=== PATIENT | male | born 1975 | race Caucasian/White ===

== ENCOUNTER 2017-10-02 04:21 | Emergency (ER) | payer MEDICARE, MEDICAID ==
[~2017-10-02] VITALS: Ht 177.8 cm; Wt 68.0 kg
[~2017-10-02 04:21] MED LIST: ACET-2178; ASPI-785; BACL-141; BISA1KIT; DOCU50CA3; GEMF600T; GLYB1.252; KEPPSOL; METO25TA3; MULT-1131; TRAM50TA94
[2017-10-02] MEDS ORDERED: SODIUM CHLORIDE 0.9% 1,000 ML IV ONE (06:39)
[2017-10-02 08:13] LABS: CHLORIDE 97 mEq/L (98-107)
[2017-10-02 08:15] LABS: BASOPHILS % 1.5 % (0.0-2.0); EOSINOPHILS % 8.9 % (0.0-5.0); HEMATOCRIT. 30.6 % (42.0-52.0); LYMPHOCYTES % 25.2 % (20.0-50.0); MEAN CORPUSCULAR HEMOGLOBIN 27.3 pg (28.0-32.0); MEAN CORPUSCULAR VOLUME 84.2 fL (80.0-94.0); MEAN PLATELET VOLUME 9.3 fl (7.4-10.4); MONOCYTES % 5.6 % (2.0-8.0); NEUTROPHILS % 58.8 % (40.0-76.0); PLATELET 227 x1000/uL (130-400); RED BLOOD CELL COUNT 3.64 mill/uL (4.7-6.1); RED CELL DISTRIBUTION WIDTH 18.1 % (11.6-14.6)
[2017-10-02 08:23] LABS: CARBON DIOXIDE 29 mEq/L (21-32)
[2017-10-02 09:14] LABS: INR 1.1; PROTHROMBIN TIME 11.6 sec (9.4-11.6)
[2017-10-02 11:27] VITALS: BP 119/66
== END 2017-10-02 11:52 | disposition home or self-care (01) ==
LOC: ER 04:21 → CANBEDREQ 21:10
DX: J95.01 Hemorrhage from tracheostomy stoma (principal); E11.65 Type 2 diabetes mellitus with hyperglycemia; D64.9 Anemia, unspecified; K21.9 Gastro-esophageal reflux disease without esophagitis; I48.91 Unspecified atrial fibrillation; I10 Essential (primary) hypertension; E78.00 Pure hypercholesterolemia, unspecified; Z79.82 Long term (current) use of aspirin; Z99.11 Dependence on respirator [ventilator] status
CPT/HCPCS: 36415; 71045; 80053; 83605; 83880; 85025; 85610; 87040; 93005; 94002; 96360; 96361; 99285

== ENCOUNTER 2017-11-22 18:04 | Inpatient (IN) | payer MEDICARE, MEDICAID ==
[~2017-11-22] VITALS: Ht 152.4 cm; Wt 65.5 kg
[~2017-11-22 18:04] MED LIST changes: -BACL-141; +BACL-141 GT; -DOCU50CA3; +DOCU50CA3 GT; -GEMF600T; +GEMF600T GT; -GLYB1.252; +GLYB1.252 GT; -KEPPSOL; +KEPPSOL GT; -METO25TA3; +METO25TA3 GT
[2017-11-22 19:29] LABS: BASOPHILS % 0.8 % (0.0-2.0); EOSINOPHILS % 1.7 % (0.0-5.0); HEMATOCRIT. 27.4 % (42.0-52.0); HEMOGLOBIN. 8.8 g/dL (14.0-18.0); LYMPHOCYTES % 24.6 % (20.0-50.0); MEAN CORPUSCULAR HEMOGLOBIN 27.5 pg (28.0-32.0); MEAN CORPUSCULAR VOLUME 85.8 fL (80.0-94.0); MEAN PLATELET VOLUME 9.2 fl (7.4-10.4); MONOCYTES % 7.6 % (2.0-8.0); NEUTROPHILS % 65.3 % (40.0-76.0); PLATELET 227 x1000/uL (130-400); RED CELL DISTRIBUTION WIDTH 17.8 % (11.6-14.6)
[2017-11-22 19:32] LABS: CHLORIDE 102 mEq/L (98-107)
[2017-11-22 19:41] LABS: INR 1.1; PROTHROMBIN TIME 11.8 sec (9.4-11.6)
[2017-11-22] MEDS ORDERED: INSULIN REGULAR (HUMULIN R) 300UNITS/3ML IV ONE (20:00)
[2017-11-22] MEDS ORDERED: SODIUM CHLORIDE 0.9% 1,000 ML IV ONE (20:00)
[2017-11-22] MEDS ORDERED: ACETAMINOPHEN 650MG SUPP PR PRN (21:30)
[2017-11-22] MEDS ORDERED: GUAIFENESIN 200MG/10ML SUGAR FREE UDC PO PRN (21:30)
[2017-11-22] MEDS ORDERED: DEXTROSE 50% WATER 50ML SYRINGE IV PRN (21:30)
[2017-11-22] MEDS ORDERED: ONDANSETRON HCL 4MG/2ML VIAL IV PRN (21:30)
[2017-11-22] MEDS ORDERED: NA PHOS,M-B/NA PHOS,DI-BA ENEMA 118ML PR PRN (21:30)
[2017-11-22] MEDS ORDERED: CLONIDINE 0.1MG TABLET PO PRN (21:30)
[2017-11-22] MEDS ORDERED: MAGNESIUM/ALUMINUM HYDROXIDE/SIMETHICONE 30ML UDC PO PRN (21:30)
[2017-11-22] MEDS ORDERED: DIPHENHYDRAMINE 50MG/ML VIAL IV PRN (21:30)
[2017-11-22] MEDS ORDERED: ACETAMINOPHEN 325MG TABLET PO PRN (21:30)
[2017-11-22] MEDS ORDERED: ACETAMINOPHEN 650MG/20.3ML UDC GT PRN (21:30)
[2017-11-22] MEDS ORDERED: DOCUSATE SODIUM 100MG CAPSULE PO PRN (21:30)
[2017-11-23] VITALS (15 sets, daily range): BP systolic 100–155; BP diastolic 46–77
[2017-11-23] MEDS ORDERED: FOLI-43 GT (01:37)
[2017-11-23] MEDS ORDERED: ZINC220C6 GT (01:37)
[2017-11-23] MEDS ORDERED: METF500T4 GT (01:37)
[2017-11-23] MEDS ORDERED: VIT500LI GT (01:37)
[2017-11-23] MEDS ORDERED: DIGO250T81 GT (01:37)
[2017-11-23] MEDS: SODIUM CHLORIDE 0.9% INJ 3ML FLUSH IVF SCH ×3 (06:00→20:33)
[2017-11-23] MEDS: BLOOD SUGAR DIAGNOSTIC STRIP TEST SCH ×4 (06:22→20:33)
[2017-11-23] MEDS: INSULIN LISPRO 100 UNITS/ML SUBCUT SCH ×4 (06:22→20:33)
[2017-11-23] MEDS: IPRATROPIUM/ALBUTEROL 0.5-3(2.5)MG/3ML NEB INH PRN (08:29)
[2017-11-23 09:32] LABS: BASOPHILS % 0.8 % (0.0-2.0); HEMOGLOBIN. 8.5 g/dL (14.0-18.0); LYMPHOCYTES % 35.6 % (20.0-50.0); MEAN CORPUSCULAR HEMOGLOBIN 27.3 pg (28.0-32.0); MEAN CORPUSCULAR VOLUME 86.4 fL (80.0-94.0); MEAN PLATELET VOLUME 9.8 fl (7.4-10.4); MONOCYTES % 8.4 % (2.0-8.0); NEUTROPHILS % 51.2 % (40.0-76.0); PLATELET 139 x1000/uL (130-400); RED BLOOD CELL COUNT 3.13 mill/uL (4.7-6.1); RED CELL DISTRIBUTION WIDTH 17.3 % (11.6-14.6)
[2017-11-23 09:54] LABS: CHLORIDE 109 mEq/L (98-107)
[2017-11-23 10:08] LABS: HDL CHOLESTEROL 23 mg/dL (40-59); LDL CHOLESTEROL 42 mg/dL (5-100)
[2017-11-23] MEDS: PANTOPRAZOLE SODIUM 40 MG/VIAL IV SCH (17:45)
[2017-11-23 21:46] LABS: HEMATOCRIT 22.3 % (42.0-52.0); HEMOGLOBIN 7.2 g/dL (14.0-18.0)
[2017-11-24] VITALS (21 sets, daily range): BP systolic 101–153; BP diastolic 57–83
[2017-11-24] MEDS: BLOOD SUGAR DIAGNOSTIC STRIP TEST SCH ×4 (06:33→20:37)
[2017-11-24] MEDS: INSULIN LISPRO 100 UNITS/ML SUBCUT SCH ×4 (06:36→20:37)
[2017-11-24] MEDS: SODIUM CHLORIDE 0.9% INJ 3ML FLUSH IVF SCH ×3 (06:37→20:38)
[2017-11-24 06:56] LABS: HEMATOCRIT 21.2 % (42.0-52.0)
[2017-11-24 07:08] LABS: INR 1.1; PARTIAL THROMBOPLASTIN TIME 21.9 sec (23.4-31.0); PROTHROMBIN TIME 11.9 sec (9.4-11.6)
[2017-11-24 07:49] LABS: HEMOGLOBIN 6.7 g/dL (14.0-18.0)
[2017-11-24] MEDS: PANTOPRAZOLE SODIUM 40 MG/VIAL IV SCH (09:01)
[2017-11-24 16:58] LABS: HEMATOCRIT 28.7 % (42.0-52.0); HEMOGLOBIN 9.4 g/dL (14.0-18.0)
[2017-11-24] MEDS: SODIUM CHLORIDE 0.45% 1,000 ML IV SCH (17:38)
[2017-11-25] VITALS (12 sets, daily range): BP systolic 105–143; BP diastolic 60–74
[2017-11-25 01:47] LABS: HEMATOCRIT 29.6 % (42.0-52.0); HEMOGLOBIN 9.3 g/dL (14.0-18.0)
[2017-11-25] MEDS: SODIUM CHLORIDE 0.45% 1,000 ML IV SCH ×2 (05:07→18:29)
[2017-11-25] MEDS: BLOOD SUGAR DIAGNOSTIC STRIP TEST SCH ×4 (05:14→21:00)
[2017-11-25] MEDS: INSULIN LISPRO 100 UNITS/ML SUBCUT SCH ×4 (05:17→21:39)
[2017-11-25] MEDS: PANTOPRAZOLE SODIUM 40 MG/VIAL IV SCH (08:41)
[2017-11-25] MEDS ORDERED: SIMETHICONE 40 MG/0.6 ML 30ML ONE ×2 (08:41→15:58)
[2017-11-25] MEDS ORDERED: SODIUM CHLORIDE 0.9% 10ML VIAL ONE (08:41)
[2017-11-25 09:51] LABS: BASOPHILS % 0.9 % (0.0-2.0); HEMATOCRIT. 28.5 % (42.0-52.0); HEMOGLOBIN. 8.9 g/dL (14.0-18.0); LYMPHOCYTES % 33.7 % (20.0-50.0); MEAN CORPUSCULAR HEMOGLOBIN 26.8 pg (28.0-32.0); MEAN CORPUSCULAR VOLUME 85.9 fL (80.0-94.0); MEAN PLATELET VOLUME 9.2 fl (7.4-10.4); MONOCYTES % 7.4 % (2.0-8.0); PLATELET 166 x1000/uL (130-400); RED BLOOD CELL COUNT 3.32 mill/uL (4.7-6.1); RED CELL DISTRIBUTION WIDTH 17.6 % (11.6-14.6)
[2017-11-25 09:55] LABS: CHLORIDE 112 mEq/L (98-107)
[2017-11-25] MEDS ORDERED: LEVETIRACETAM 500MG/5ML CUP GT SCH (10:15)
[2017-11-25] MEDS ORDERED: PROT40 PO (10:21)
[2017-11-25] MEDS: FOLIC ACID 1MG TABLET GT SCH (10:55)
[2017-11-25] MEDS: GEMFIBROZIL 600MG TABLET GT SCH ×2 (10:55→21:40)
[2017-11-25] MEDS: ZINC SULFATE 220 MG ( 50 ) CAPSULE GT SCH (10:56)
[2017-11-25] MEDS: SODIUM CHLORIDE 0.9% INJ 3ML FLUSH IVF SCH ×2 (13:24→21:41)
[2017-11-25] MEDS: LEVETIRACETAM 500 MG in SODIUM CHLORIDE 0.9% 100 ML IV SCH ×2 (13:34→21:39)
[2017-11-25] MEDS: BACLOFEN 10MG TABLET GT SCH ×2 (13:39→21:40)
[2017-11-25] MEDS ORDERED: FENTANYL CITRATE/PF 50MCG/ML 2ML VIAL ONE (15:58)
[2017-11-25] MEDS ORDERED: MIDAZOLAM HCL 5 MG/5 ML VIAL ONE (15:58)
[2017-11-25] MEDS ORDERED: MIDAZOLAM HCL 5 MG/5 ML VIAL IV PRN (16:30)
[2017-11-25] MEDS ORDERED: FENTANYL CITRATE/PF 50MCG/ML 2ML VIAL IV PRN (16:31)
[2017-11-25] MEDS ORDERED: DIGOXIN 250MCG TABLET GT SCH (18:00)
[2017-11-26] VITALS (14 sets, daily range): BP systolic 90–142; BP diastolic 49–79
[2017-11-26] MEDS: SODIUM CHLORIDE 0.9% INJ 3ML FLUSH IVF SCH ×2 (06:00→14:02)
[2017-11-26] MEDS: INSULIN LISPRO 100 UNITS/ML SUBCUT SCH ×2 (06:27→12:39)
[2017-11-26] MEDS: BACLOFEN 10MG TABLET GT SCH ×2 (06:28→14:05)
[2017-11-26] MEDS: BLOOD SUGAR DIAGNOSTIC STRIP TEST SCH ×2 (06:28→12:31)
[2017-11-26] MEDS: IPRATROPIUM/ALBUTEROL 0.5-3(2.5)MG/3ML NEB INH PRN ×2 (08:04→12:18)
[2017-11-26] MEDS: ZINC SULFATE 220 MG ( 50 ) CAPSULE GT SCH (09:26)
[2017-11-26] MEDS: FOLIC ACID 1MG TABLET GT SCH (09:26)
[2017-11-26] MEDS: LEVETIRACETAM 500 MG in SODIUM CHLORIDE 0.9% 100 ML IV SCH (09:26)
[2017-11-26] MEDS: PANTOPRAZOLE SODIUM 40 MG/VIAL IV SCH (09:26)
[2017-11-26] MEDS: SODIUM CHLORIDE 0.45% 1,000 ML IV SCH (09:27)
[2017-11-26] MEDS: GEMFIBROZIL 600MG TABLET GT SCH (09:30)
[2017-11-26 13:44] LABS: LYMPHOCYTES % 28.9 % (20.0-50.0); MEAN CORPUSCULAR HEMOGLOBIN 28.5 pg (28.0-32.0); MEAN CORPUSCULAR VOLUME 85.3 fL (80.0-94.0); MONOCYTES % 4.8 % (2.0-8.0); NEUTROPHILS % 57.3 % (40.0-76.0); PLATELET 99 x1000/uL (130-400); RED BLOOD CELL COUNT 3.16 mill/uL (4.7-6.1); RED CELL DISTRIBUTION WIDTH 16.8 % (11.6-14.6)
[2017-11-26 13:51] LABS: CHLORIDE 115 mEq/L (98-107)
== END 2017-11-26 16:40 | DRG 377 ==
LOC: ER 18:51 → 5EST 20:19 → ENRESERV 21:13
PROVIDERS: ADMIT Family Medicine; ATTEND Family Medicine
PROC: 5A1945Z Respiratory Ventilation, 24-96 Consecutive Hours (ICD-10-PCS; 2017-11-22)
PROC: 30233N1 Transfusion of Nonautologous Red Blood Cells into Peripheral Vein, Percutaneous Approach (ICD-10-PCS; principal; 2017-11-24)
PROC: 0DJ08ZZ Inspection of Upper Intestinal Tract, Via Natural or Artificial Opening Endoscopic (ICD-10-PCS; 2017-11-25)
DX: K92.1 Melena (principal); G93.49 Other encephalopathy; Z99.11 Dependence on respirator [ventilator] status; J96.10 Chronic respiratory failure, unspecified whether with hypoxia or hypercapnia; Z93.0 Tracheostomy status; D68.9 Coagulation defect, unspecified; G40.909 Epilepsy, unspecified, not intractable, without status epilepticus; I48.91 Unspecified atrial fibrillation; E11.65 Type 2 diabetes mellitus with hyperglycemia; R13.10 Dysphagia, unspecified; I50.9 Heart failure, unspecified; D64.9 Anemia, unspecified; E78.00 Pure hypercholesterolemia, unspecified; E78.5 Hyperlipidemia, unspecified; I11.0 Hypertensive heart disease with heart failure; J44.9 Chronic obstructive pulmonary disease, unspecified; K21.9 Gastro-esophageal reflux disease without esophagitis; K29.60 Other gastritis without bleeding; Z87.820 Personal history of traumatic brain injury; Z79.899 Other long term (current) drug therapy; Z93.1 Gastrostomy status; Z74.01 Bed confinement status; Z79.82 Long term (current) use of aspirin
CPT/HCPCS: 36415; 71045; 80048; 80053; 80061; 82270; 82962; 85014; 85018; 85025; 85610; 85730; 86850; 86900; 86920; 93005; 94002; 94003; 94640; 96361; 96374; 99285; A4216; A6261; C9113; J1815; J1953; J2250; J3010; J7030; J7050; J7620; P9016

== ENCOUNTER 2017-11-28 17:15 | Inpatient (IN) | payer MEDICARE, MEDICAID ==
[~2017-11-28] VITALS: Ht 165.1 cm; Wt 66.7 kg
[2017-11-28] MEDS: SODIUM CHLORIDE 0.9% INJ 3ML FLUSH IVF SCH (01:00)
[~2017-11-28 17:15] MED LIST changes: -ASPI-785; +DIGO250T81 GT; +FOLI-43 GT; +METF500T4 GT; +PROT40 PO; +VIT500LI GT; +ZINC220C6 GT
[2017-11-28 18:37] LABS: BASOPHILS % 0.3 % (0.0-2.0); EOSINOPHILS % 1.9 % (0.0-5.0); HEMATOCRIT. 25.7 % (42.0-52.0); HEMOGLOBIN. 8.6 g/dL (14.0-18.0); LYMPHOCYTES % 19.3 % (20.0-50.0); MEAN CORPUSCULAR HEMOGLOBIN 28.9 pg (28.0-32.0); MEAN CORPUSCULAR VOLUME 86.4 fL (80.0-94.0); MEAN PLATELET VOLUME 9.7 fl (7.4-10.4); MONOCYTES % 5.8 % (2.0-8.0); NEUTROPHILS % 72.7 % (40.0-76.0); PLATELET 169 x1000/uL (130-400); RED BLOOD CELL COUNT 2.98 mill/uL (4.7-6.1)
[2017-11-28 18:44] LABS: CHLORIDE 108 mEq/L (98-107)
[2017-11-28 18:46] LABS: INR 1.1; PROTHROMBIN TIME 11.9 sec (9.4-11.6)
[2017-11-28 19:03] LABS: BG CARBOXYHEMOGLOBIN 1.1 % (0.5-1.5); BG DEOXYHEMOGLOBIN 0.8 % (0.0-5.0); BG FRACTION INSPIRED OXYGEN 40; BG HCO3 ACT 25.6 mmol/L (22.0-26.0); BG OXYGEN SATURATION 99.2 % (92.0-98.5); BG OXYHEMOGLOBIN 98.1 % (94.0-97.0); BG PH 7.482 (7.350-7.450); BG PO2 146.9 mmHg (75.0-100.0); BG SAMPLE SITE LEFT BRACHIAL; BG TIDAL VOLUME(mL) 500 mL; BG VENT MODE VENT - A/C; BG VENT RATE 12 set
[2017-11-28] MEDS ORDERED: SODIUM CHLORIDE 0.9% 1000ML BAG (SEPSIS BOLUS) IV ONE (20:00)
[2017-11-28] MEDS ORDERED: PIPERACILLIN/TAZ 3.375G PREMIX 50 ML IV ONE (20:00)
[2017-11-28] MEDS ORDERED: VANCOMYCIN 1 G PREMIX 200 ML IV ONE (20:00)
[2017-11-28] MEDS ORDERED: VANCOMYCIN 1 G PREMIX 200 ML IV SCH (21:45)
[2017-11-28] MEDS ORDERED: ACETAMINOPHEN 650MG/20.3ML UDC GT PRN (21:45)
[2017-11-28] MEDS ORDERED: ONDANSETRON HCL 4MG/2ML VIAL IV PRN (21:45)
[2017-11-28] MEDS ORDERED: MAGNESIUM/ALUMINUM HYDROXIDE/SIMETHICONE 30ML UDC PO PRN (21:45)
[2017-11-28] MEDS ORDERED: IPRATROPIUM/ALBUTEROL 0.5-3(2.5)MG/3ML NEB INH PRN (21:45)
[2017-11-28] MEDS ORDERED: HYDROCODONE/ACETAMINOPHEN 5/325MG TABLET PO PRN (21:45)
[2017-11-28] MEDS ORDERED: DOCUSATE SODIUM 100MG CAPSULE PO PRN (21:45)
[2017-11-28] MEDS ORDERED: GUAIFENESIN 200MG/10ML SUGAR FREE UDC PO PRN (21:45)
[2017-11-28] MEDS ORDERED: ACETAMINOPHEN 650MG SUPP PR PRN (21:45)
[2017-11-28] MEDS ORDERED: DIPHENHYDRAMINE 50MG/ML VIAL IV PRN (21:45)
[2017-11-29] VITALS (60 sets, daily range): BP systolic 93–130; BP diastolic 48–83
[2017-11-29] MEDS ORDERED: IPRATROPIUM/ALBUTEROL 0.5-3(2.5)MG/3ML NEB INH SCH
[2017-11-29] MEDS ORDERED: NA PHOS,M-B/NA PHOS,DI-BA ENEMA 118ML PR PRN (00:12)
[2017-11-29] MEDS ORDERED: DEXTROSE 50% WATER 50ML SYRINGE IV PRN (00:13)
[2017-11-29] MEDS ORDERED: PANTOPRAZOLE 80 MG in SODIUM CHLORIDE 0.9% 100 ML IV SCH ×4 (01:00)
[2017-11-29] MEDS ORDERED: IOHEXOL-300 100 ML BOTTLE ONE (01:50)
[2017-11-29] MEDS ORDERED: NOREPINEPHRINE 4 MG in SODIUM CHLORIDE 0.9% 250 ML IV ONE (02:00)
[2017-11-29 02:53] LABS: HEMOGLOBIN 6.3 g/dL (14.0-18.0)
[2017-11-29] MEDS ORDERED: INSULIN LISPRO 100 UNITS/ML SUBCUT SCH ×2 (03:30→07:00)
[2017-11-29] MEDS: VANCOMYCIN 1,250 MG in DEXT 5% WATER 250 ML IV SCH ×2 (04:00→11:41)
[2017-11-29] MEDS ORDERED: PIPERACILLIN/TAZ 3.375G PREMIX 50 ML IV SCH ×2 (06:00→10:00)
[2017-11-29] MEDS: BLOOD SUGAR DIAGNOSTIC STRIP TEST SCH ×3 (06:17→17:37)
[2017-11-29] MEDS: SODIUM CHLORIDE 0.9% INJ 3ML FLUSH IVF SCH ×3 (06:17→21:34)
[2017-11-29] MEDS: INSULIN LISPRO 100 UNITS/ML SUBCUT SCH ×3 (06:21→17:46)
[2017-11-29] MEDS ORDERED: BLOOD SUGAR DIAGNOSTIC STRIP TEST SCH (07:50)
[2017-11-29] MEDS ORDERED: LIDOCAINE HCL/PF 1% 10 MG/ML 5ML VIAL ONE (08:44)
[2017-11-29] MEDS: LEVETIRACETAM 500MG/5ML CUP GT SCH ×2 (10:56→21:33)
[2017-11-29] MEDS: PANTOPRAZOLE SODIUM 40 MG/VIAL IV SCH ×2 (11:41→21:33)
[2017-11-29 12:38] LABS: BASOPHILS % 0.4 % (0.0-2.0); HEMATOCRIT. 26.6 % (42.0-52.0); HEMOGLOBIN. 8.8 g/dL (14.0-18.0); LYMPHOCYTES % 22.6 % (20.0-50.0); MEAN CORPUSCULAR HEMOGLOBIN 28.3 pg (28.0-32.0); MEAN CORPUSCULAR VOLUME 86.2 fL (80.0-94.0); MEAN PLATELET VOLUME 9.7 fl (7.4-10.4); MONOCYTES % 7.2 % (2.0-8.0); NEUTROPHILS % 68.8 % (40.0-76.0); PLATELET 155 x1000/uL (130-400); RED BLOOD CELL COUNT 3.09 mill/uL (4.7-6.1); RED CELL DISTRIBUTION WIDTH 15.8 % (11.6-14.6)
[2017-11-29 12:42] LABS: CLARITY URINE CLEAR (CLEAR); COLOR URINE ORANGE (YELLOW); KETONES URINE 2+ (NEGATIVE); LEUKOCYTE ESTERASE URINE NEGATIVE (NEGATIVE); NITRITE URINE NEGATIVE (NEGATIVE); OCCULT BLOOD URINE 1+ (NEGATIVE); PROTEIN URINE TRACE (NEGATIVE); SPECIFIC GRAVITY URINE 1.031 (1.005-1.030)
[2017-11-29 12:48] LABS: CHLORIDE 113 mEq/L (98-107)
[2017-11-29 12:53] LABS: HDL CHOLESTEROL 20 mg/dL (40-59); LDL CHOLESTEROL 46 mg/dL (5-100)
[2017-11-29] MEDS: PIPERACILLIN/TAZ 3.375G PREMIX 50 ML IV SCH ×2 (12:54→17:45)
[2017-11-29 13:00] LABS: *AMPHETAMINES SCREEN URINE NEGATIVE (NEGATIVE); *BARBITURATES SCREEN URINE NEGATIVE (NEGATIVE); *BENZODIAZEPINES SCREEN URINE NEGATIVE (NEGATIVE); *COCAINE SCREEN URINE NEGATIVE (NEGATIVE); CANNABINOID URINE SCREEN NEGATIVE (NEGATIVE); METHADONE URINE SCREEN NEGATIVE (NEGATIVE); OPIATES URINE SCREEN NEGATIVE (NEGATIVE); PHENCYCLIDINE URINE SCREEN NEGATIVE (NEGATIVE)
[2017-11-29] MEDS: DEXT 5%/0.45% NACL KCL 10MEQ/L 1,000 ML IV SCH (14:11)
[2017-11-29] MEDS: VANCOMYCIN 1 G PREMIX 200 ML IV SCH ×2 (16:00→23:11)
[2017-11-29] MEDS ORDERED: PHYTONADIONE 10MG/ML AMP IM NR (17:30)
[2017-11-29] MEDS ORDERED: PHYTONADIONE 10MG/ML AMP SUBCUT NR (17:30)
[2017-11-29 19:14] LABS: HEMATOCRIT 26.1 % (42.0-52.0); HEMOGLOBIN 8.6 g/dL (14.0-18.0)
[2017-11-29] MEDS ORDERED: VANCOMYCIN 1,250 MG in SODIUM CHLORIDE 0.9% 250 ML IV SCH (20:00)
[2017-11-30] VITALS (91 sets, daily range): BP systolic 78–152; BP diastolic 41–95
[2017-11-30] MEDS: BLOOD SUGAR DIAGNOSTIC STRIP TEST SCH ×4 (00:18→17:37)
[2017-11-30] MEDS: DEXT 5%/0.45% NACL KCL 10MEQ/L 1,000 ML IV SCH ×3 (00:22→19:55)
[2017-11-30] MEDS: PIPERACILLIN/TAZ 3.375G PREMIX 50 ML IV SCH ×4 (00:33→17:41)
[2017-11-30] MEDS: INSULIN LISPRO 100 UNITS/ML SUBCUT SCH ×5 (00:36→21:37)
[2017-11-30 01:57] LABS: HEMATOCRIT 20.2 % (42.0-52.0); HEMOGLOBIN 6.7 g/dL (14.0-18.0)
[2017-11-30] MEDS: IPRATROPIUM/ALBUTEROL 0.5-3(2.5)MG/3ML NEB INH SCH ×3 (04:47→20:31)
[2017-11-30] MEDS: VANCOMYCIN 1 G PREMIX 200 ML IV SCH (06:26)
[2017-11-30] MEDS: SODIUM CHLORIDE 0.9% INJ 3ML FLUSH IVF SCH ×3 (06:52→22:13)
[2017-11-30 07:43] LABS: HEMATOCRIT 27.1 % (42.0-52.0); HEMOGLOBIN 8.8 g/dL (14.0-18.0)
[2017-11-30] MEDS: LEVETIRACETAM 500MG/5ML CUP GT SCH ×2 (09:47→21:38)
[2017-11-30] MEDS: PANTOPRAZOLE SODIUM 40 MG/VIAL IV SCH ×2 (09:47→21:38)
[2017-11-30 13:16] LABS: HEMATOCRIT 24.1 % (42.0-52.0); HEMOGLOBIN 7.9 g/dL (14.0-18.0)
[2017-11-30] MEDS ORDERED: DEXTROSE 50% WATER 50ML SYRINGE IV PRN (14:45)
[2017-11-30] MEDS: VANCOMYCIN 1,250 MG in SODIUM CHLORIDE 0.9% 250 ML IV SCH ×2 (15:45→22:13)
[2017-11-30] MEDS ORDERED: SORBITOL 70% SOLN 30ML PO NR ×2 (16:00→20:00)
[2017-11-30] MEDS ORDERED: BLOOD SUGAR DIAGNOSTIC STRIP TEST SCH (17:50)
[2017-12-01] VITALS (69 sets, daily range): BP systolic 94–177; BP diastolic 43–107
[2017-12-01] MEDS: PIPERACILLIN/TAZ 3.375G PREMIX 50 ML IV SCH ×4 (01:37→18:07)
[2017-12-01] MEDS: IPRATROPIUM/ALBUTEROL 0.5-3(2.5)MG/3ML NEB INH SCH ×4 (01:45→20:47)
[2017-12-01] MEDS ORDERED: IOHEXOL-300 100 ML BOTTLE ONE (03:32)
[2017-12-01 05:58] LABS: HEMATOCRIT 25.8 % (42.0-52.0); HEMOGLOBIN 8.5 g/dL (14.0-18.0)
[2017-12-01] MEDS ORDERED: NA PHOS,M-B/NA PHOS,DI-BA ENEMA 118ML PR NR (06:00)
[2017-12-01] MEDS: DEXT 5%/0.45% NACL KCL 10MEQ/L 1,000 ML IV SCH ×3 (06:20→20:21)
[2017-12-01] MEDS: SODIUM CHLORIDE 0.9% INJ 3ML FLUSH IVF SCH ×3 (06:21→22:30)
[2017-12-01] MEDS: BLOOD SUGAR DIAGNOSTIC STRIP TEST SCH ×4 (06:21→17:47)
[2017-12-01] MEDS: VANCOMYCIN 1,250 MG in DEXT 5% WATER 250 ML IV SCH ×3 (06:31→22:30)
[2017-12-01] MEDS: INSULIN LISPRO 100 UNITS/ML SUBCUT SCH ×4 (07:26→21:09)
[2017-12-01 09:57] LABS: PARTIAL THROMBOPLASTIN TIME 23.8 sec (23.4-31.0); PROTHROMBIN TIME 10.8 sec (9.4-11.6)
[2017-12-01] MEDS ORDERED: FENTANYL CITRATE/PF 50MCG/ML 2ML VIAL ONE (10:18)
[2017-12-01] MEDS ORDERED: MIDAZOLAM HCL 5 MG/5 ML VIAL ONE ×2 (10:18→13:24)
[2017-12-01] MEDS ORDERED: SIMETHICONE 40 MG/0.6 ML 30ML ONE (10:19)
[2017-12-01 12:32] LABS: HEMATOCRIT 27.3 % (42.0-52.0); HEMOGLOBIN 9.1 g/dL (14.0-18.0)
[2017-12-01] MEDS: LEVETIRACETAM 500MG/5ML CUP GT SCH ×2 (12:55→21:08)
[2017-12-01] MEDS: PANTOPRAZOLE SODIUM 40 MG/VIAL IV SCH ×2 (12:55→21:08)
[2017-12-01 19:18] LABS: HEMATOCRIT 26.7 % (42.0-52.0); HEMOGLOBIN 8.8 g/dL (14.0-18.0)
[2017-12-02] VITALS (36 sets, daily range): BP systolic 111–155; BP diastolic 58–90
[2017-12-02] MEDS: PIPERACILLIN/TAZ 3.375G PREMIX 50 ML IV SCH ×5 (00:17→23:07)
[2017-12-02] MEDS: BLOOD SUGAR DIAGNOSTIC STRIP TEST SCH ×5 (00:18→23:11)
[2017-12-02 01:30] LABS: HEMATOCRIT 24.8 % (42.0-52.0); HEMOGLOBIN 8.3 g/dL (14.0-18.0)
[2017-12-02] MEDS: IPRATROPIUM/ALBUTEROL 0.5-3(2.5)MG/3ML NEB INH SCH ×4 (01:30→20:16)
[2017-12-02 05:05] LABS: CHLORIDE 121 mEq/L (98-107)
[2017-12-02 05:24] LABS: HEMATOCRIT 25.7 % (42.0-52.0)
[2017-12-02] MEDS: SODIUM CHLORIDE 0.9% INJ 3ML FLUSH IVF SCH ×3 (05:49→21:02)
[2017-12-02] MEDS: VANCOMYCIN 1,250 MG in DEXT 5% WATER 250 ML IV SCH (06:02)
[2017-12-02] MEDS: INSULIN LISPRO 100 UNITS/ML SUBCUT SCH ×4 (06:03→23:17)
[2017-12-02] MEDS: DEXT 5%/0.45% NACL KCL 10MEQ/L 1,000 ML IV SCH (07:05)
[2017-12-02] MEDS ORDERED: INSULIN GLARGINE UD 100 UNITS/ML SYR SUBCUT SCH (09:00)
[2017-12-02] MEDS: PANTOPRAZOLE SODIUM 40 MG/VIAL IV SCH ×2 (10:17→21:02)
[2017-12-02] MEDS: LEVETIRACETAM 500MG/5ML CUP GT SCH ×2 (10:17→21:02)
[2017-12-02] MEDS ORDERED: INSULIN LISPRO 100 UNITS/ML SUBCUT SCH (10:30)
[2017-12-02 12:59] LABS: HEMATOCRIT 25.3 % (42.0-52.0)
[2017-12-02] MEDS: INSULIN GLARGINE UD 100 UNITS/ML SYR SUBCUT SCH (23:07)
[2017-12-03] VITALS (13 sets, daily range): BP systolic 117–161; BP diastolic 45–94
[2017-12-03] MEDS: IPRATROPIUM/ALBUTEROL 0.5-3(2.5)MG/3ML NEB INH SCH ×4 (02:08→20:34)
[2017-12-03] MEDS: PIPERACILLIN/TAZ 3.375G PREMIX 50 ML IV SCH ×4 (05:35→23:14)
[2017-12-03] MEDS: SODIUM CHLORIDE 0.9% INJ 3ML FLUSH IVF SCH ×3 (05:36→23:10)
[2017-12-03] MEDS: INSULIN LISPRO 100 UNITS/ML SUBCUT SCH ×4 (05:43→23:14)
[2017-12-03] MEDS: BLOOD SUGAR DIAGNOSTIC STRIP TEST SCH ×4 (05:44→23:25)
[2017-12-03] MEDS ORDERED: POTASSIUM CHLORIDE 20MEQ TABLET SR PO SCH (08:15)
[2017-12-03] MEDS ORDERED: AMPI250V3 PO (08:18)
[2017-12-03] MEDS ORDERED: IPRA3AMP9 INH (08:24)
[2017-12-03] MEDS ORDERED: LANTUSUD SUBCUT (08:24)
[2017-12-03] MEDS ORDERED: POTASSIUM CHLORIDE 20MEQ/PACKET GT SCH (08:30)
[2017-12-03] MEDS: LEVETIRACETAM 500MG/5ML CUP GT SCH ×2 (09:27→20:29)
[2017-12-03] MEDS: PANTOPRAZOLE SODIUM 40 MG/VIAL IV SCH ×2 (09:27→20:29)
[2017-12-03] MEDS: INSULIN GLARGINE UD 100 UNITS/ML SYR SUBCUT SCH ×2 (09:57→23:10)
[2017-12-03 12:16] LABS: BASOPHILS % 0.7 % (0.0-2.0); EOSINOPHILS % 7.1 % (0.0-5.0); HEMATOCRIT. 26.9 % (42.0-52.0); HEMOGLOBIN. 8.6 g/dL (14.0-18.0); LYMPHOCYTES % 19.7 % (20.0-50.0); MEAN CORPUSCULAR HEMOGLOBIN 28.2 pg (28.0-32.0); MEAN CORPUSCULAR VOLUME 88.5 fL (80.0-94.0); MEAN PLATELET VOLUME 9.2 fl (7.4-10.4); MONOCYTES % 5.9 % (2.0-8.0); NEUTROPHILS % 66.6 % (40.0-76.0); PLATELET 165 x1000/uL (130-400); RED BLOOD CELL COUNT 3.04 mill/uL (4.7-6.1); RED CELL DISTRIBUTION WIDTH 16.4 % (11.6-14.6)
[2017-12-03 13:11] LABS: CHLORIDE 121 mEq/L (98-107)
[2017-12-04] VITALS (17 sets, daily range): BP systolic 91–130; BP diastolic 49–77
[2017-12-04] MEDS: SODIUM CHLORIDE 0.9% INJ 3ML FLUSH IVF SCH ×3 (05:33→22:20)
[2017-12-04] MEDS: PIPERACILLIN/TAZ 3.375G PREMIX 50 ML IV SCH ×4 (05:33→23:49)
[2017-12-04] MEDS: INSULIN LISPRO 100 UNITS/ML SUBCUT SCH ×4 (05:43→23:49)
[2017-12-04] MEDS: BLOOD SUGAR DIAGNOSTIC STRIP TEST SCH ×4 (06:00→23:52)
[2017-12-04] MEDS: IPRATROPIUM/ALBUTEROL 0.5-3(2.5)MG/3ML NEB INH SCH ×3 (07:29→20:34)
[2017-12-04] MEDS: LEVETIRACETAM 500MG/5ML CUP GT SCH ×2 (09:38→22:19)
[2017-12-04] MEDS: PANTOPRAZOLE SODIUM 40 MG/VIAL IV SCH ×2 (09:38→22:19)
[2017-12-04] MEDS: INSULIN GLARGINE UD 100 UNITS/ML SYR SUBCUT SCH (09:40)
[2017-12-04 13:18] LABS: BASOPHILS % 0.6 % (0.0-2.0); HEMATOCRIT. 21.6 % (42.0-52.0); LYMPHOCYTES % 23.8 % (20.0-50.0); MEAN CORPUSCULAR HEMOGLOBIN 28.4 pg (28.0-32.0); MEAN CORPUSCULAR VOLUME 89.8 fL (80.0-94.0); MEAN PLATELET VOLUME 9.3 fl (7.4-10.4); MONOCYTES % 6.4 % (2.0-8.0); NEUTROPHILS % 62.2 % (40.0-76.0); PLATELET 159 x1000/uL (130-400); RED BLOOD CELL COUNT 2.41 mill/uL (4.7-6.1); RED CELL DISTRIBUTION WIDTH 16.5 % (11.6-14.6)
[2017-12-04 13:31] LABS: HEMOGLOBIN. 6.8 g/dL (14.0-18.0)
[2017-12-04 13:43] LABS: CHLORIDE 123 mEq/L (98-107)
[2017-12-04 14:14] LABS: CLARITY URINE CLEAR (CLEAR); COLOR URINE YELLOW (YELLOW); KETONES URINE NEGATIVE (NEGATIVE); LEUKOCYTE ESTERASE URINE NEGATIVE (NEGATIVE); NITRITE URINE NEGATIVE (NEGATIVE); OCCULT BLOOD URINE 2+ (NEGATIVE); PROTEIN URINE NEGATIVE (NEGATIVE); SPECIFIC GRAVITY URINE 1.017 (1.005-1.030); UROBILINOGEN URINE 0.2 E.U./dL (0.2-1.0)
[2017-12-04 15:17] LABS: HEMATOCRIT 25.8 % (42.0-52.0); HEMOGLOBIN 7.9 g/dL (14.0-18.0)
[2017-12-04] MEDS ORDERED: DEXTROSE 5% WATER 1,000 ML IV SCH (19:15)
[2017-12-04] MEDS: SODIUM CHLORIDE 0.45% 1,000 ML IV SCH (22:20)
[2017-12-04] MEDS ORDERED: INSULIN GLARGINE UD 100 UNITS/ML SYR SUBCUT SCH (23:00)
[2017-12-05] VITALS (15 sets, daily range): BP systolic 100–128; BP diastolic 54–89
[2017-12-05 01:12] LABS: HEMATOCRIT 24.2 % (42.0-52.0)
[2017-12-05] MEDS: IPRATROPIUM/ALBUTEROL 0.5-3(2.5)MG/3ML NEB INH SCH ×4 (02:08→20:49)
[2017-12-05] MEDS: SODIUM CHLORIDE 0.45% 1,000 ML IV SCH (05:45)
[2017-12-05] MEDS: INSULIN LISPRO 100 UNITS/ML SUBCUT SCH ×4 (05:50→23:18)
[2017-12-05] MEDS: BLOOD SUGAR DIAGNOSTIC STRIP TEST SCH ×4 (05:56→23:19)
[2017-12-05] MEDS: PIPERACILLIN/TAZ 3.375G PREMIX 50 ML IV SCH (07:19)
[2017-12-05] MEDS: SODIUM CHLORIDE 0.9% INJ 3ML FLUSH IVF SCH ×3 (07:19→21:38)
[2017-12-05 07:34] LABS: BASOPHILS % 0.9 % (0.0-2.0); EOSINOPHILS % 9.5 % (0.0-5.0); HEMATOCRIT. 23.1 % (42.0-52.0); HEMOGLOBIN. 7.5 g/dL (14.0-18.0); MEAN CORPUSCULAR HEMOGLOBIN 28.1 pg (28.0-32.0); MEAN CORPUSCULAR VOLUME 86.3 fL (80.0-94.0); MEAN PLATELET VOLUME 9.4 fl (7.4-10.4); MONOCYTES % 6.4 % (2.0-8.0); NEUTROPHILS % 49.2 % (40.0-76.0); PLATELET 146 x1000/uL (130-400); RED BLOOD CELL COUNT 2.67 mill/uL (4.7-6.1); RED CELL DISTRIBUTION WIDTH 18.3 % (11.6-14.6)
[2017-12-05 08:31] LABS: PHOSPHORUS 3.9 mg/dL (2.5-4.9)
[2017-12-05] MEDS: LEVETIRACETAM 500MG/5ML CUP GT SCH ×2 (10:29→21:38)
[2017-12-05] MEDS: PANTOPRAZOLE SODIUM 40 MG/VIAL IV SCH ×2 (10:29→21:38)
[2017-12-05] MEDS: INSULIN GLARGINE UD 100 UNITS/ML SYR SUBCUT SCH ×2 (10:32→23:19)
[2017-12-05] MEDS: DEXTROSE 5% WATER 1,000 ML IV SCH (10:40)
[2017-12-05 10:42] LABS: INR 1.1; PROTHROMBIN TIME 11.1 sec (9.4-11.6)
[2017-12-05 16:33] LABS: HEMATOCRIT 27.3 % (42.0-52.0); HEMOGLOBIN 8.7 g/dL (14.0-18.0)
[2017-12-05 21:42] LABS: HEMOGLOBIN 7.8 g/dL (14.0-18.0)
[2017-12-05 23:59] LABS: HEMOGLOBIN 7.4 g/dL (14.0-18.0)
[2017-12-06] VITALS (26 sets, daily range): BP systolic 90–124; BP diastolic 49–78
[2017-12-06] MEDS: IPRATROPIUM/ALBUTEROL 0.5-3(2.5)MG/3ML NEB INH SCH ×4 (01:21→19:49)
[2017-12-06] MEDS: INSULIN LISPRO 100 UNITS/ML SUBCUT SCH ×3 (05:40→17:34)
[2017-12-06] MEDS: BLOOD SUGAR DIAGNOSTIC STRIP TEST SCH ×3 (05:41→17:24)
[2017-12-06] MEDS: DEXTROSE 5% WATER 1,000 ML IV SCH ×2 (05:42→11:55)
[2017-12-06] MEDS: SODIUM CHLORIDE 0.9% INJ 3ML FLUSH IVF SCH ×3 (06:59→22:50)
[2017-12-06 07:25] LABS: EOSINOPHILS % 9.6 % (0.0-5.0); HEMATOCRIT. 22.1 % (42.0-52.0); HEMOGLOBIN. 7.1 g/dL (14.0-18.0); LYMPHOCYTES % 32.5 % (20.0-50.0); MEAN CORPUSCULAR HEMOGLOBIN 27.9 pg (28.0-32.0); MEAN PLATELET VOLUME 9.5 fl (7.4-10.4); MONOCYTES % 5.7 % (2.0-8.0); NEUTROPHILS % 51.2 % (40.0-76.0); PLATELET 150 x1000/uL (130-400); RED BLOOD CELL COUNT 2.54 mill/uL (4.7-6.1)
[2017-12-06 07:57] LABS: CHLORIDE 119 mEq/L (98-107)
[2017-12-06 08:07] LABS: PHOSPHORUS 3.5 mg/dL (2.5-4.9)
[2017-12-06] MEDS: PANTOPRAZOLE SODIUM 40 MG/VIAL IV SCH ×2 (09:04→22:25)
[2017-12-06] MEDS: LEVETIRACETAM 500MG/5ML CUP GT SCH ×2 (09:26→22:25)
[2017-12-06] MEDS: INSULIN GLARGINE UD 100 UNITS/ML SYR SUBCUT SCH ×2 (10:38→22:27)
[2017-12-06] MEDS ORDERED: VANCOMYCIN 1 G PREMIX 200 ML IV SCH (14:00)
[2017-12-06 20:03] LABS: HEMATOCRIT 35.5 % (42.0-52.0); HEMOGLOBIN 11.8 g/dL (14.0-18.0)
[2017-12-07] VITALS (12 sets, daily range): BP systolic 90–157; BP diastolic 45–94
[2017-12-07] MEDS: BLOOD SUGAR DIAGNOSTIC STRIP TEST SCH ×4 (00:45→17:06)
[2017-12-07] MEDS: INSULIN LISPRO 100 UNITS/ML SUBCUT SCH ×4 (00:45→17:25)
[2017-12-07] MEDS: DEXTROSE 5% WATER 1,000 ML IV SCH ×2 (00:46→14:35)
[2017-12-07 01:16] LABS: HEMATOCRIT 32.1 % (42.0-52.0); HEMOGLOBIN 10.6 g/dL (14.0-18.0)
[2017-12-07] MEDS: IPRATROPIUM/ALBUTEROL 0.5-3(2.5)MG/3ML NEB INH SCH ×3 (01:36→14:37)
[2017-12-07] MEDS: SODIUM CHLORIDE 0.9% INJ 3ML FLUSH IVF SCH ×2 (06:00→13:29)
[2017-12-07 09:41] LABS: PHOSPHORUS 3.6 mg/dL (2.5-4.9)
[2017-12-07] MEDS: LEVETIRACETAM 500MG/5ML CUP GT SCH (09:46)
[2017-12-07] MEDS: PANTOPRAZOLE SODIUM 40 MG/VIAL IV SCH (09:46)
[2017-12-07] MEDS: INSULIN GLARGINE UD 100 UNITS/ML SYR SUBCUT SCH (09:48)
[2017-12-07 10:49] LABS: EOSINOPHILS % 5.4 % (0.0-5.0); HEMATOCRIT. 30.4 % (42.0-52.0); LYMPHOCYTES % 26.1 % (20.0-50.0); MEAN CORPUSCULAR HEMOGLOBIN 28.8 pg (28.0-32.0); MEAN CORPUSCULAR VOLUME 87.1 fL (80.0-94.0); MEAN PLATELET VOLUME 9.2 fl (7.4-10.4); MONOCYTES % 4.8 % (2.0-8.0); NEUTROPHILS % 62.7 % (40.0-76.0); PLATELET 158 x1000/uL (130-400); RED BLOOD CELL COUNT 3.49 mill/uL (4.7-6.1); RED CELL DISTRIBUTION WIDTH 16.1 % (11.6-14.6)
[2017-12-07 10:52] LABS: HEMOGLOBIN. 10.1 g/dL (14.0-18.0)
== END 2017-12-07 19:54 | disposition short-term general hospital (02) | DRG 870 ==
LOC: ER 18:02 → UNDOADMIN 19:58 → CVICU 19:58 → MICUNO 19:58 → ENRESERV 20:11 → CVICU 11-29 01:49 → 5EST 12-02 14:31
PROVIDERS: ADMIT Family Medicine; ATTEND Family Medicine
PROC: 5A1955Z Respiratory Ventilation, Greater than 96 Consecutive Hours (ICD-10-PCS; 2017-11-28)
PROC: 30233L1 Transfusion of Nonautologous Fresh Plasma into Peripheral Vein, Percutaneous Approach (ICD-10-PCS; 2017-11-29)
PROC: 30233N1 Transfusion of Nonautologous Red Blood Cells into Peripheral Vein, Percutaneous Approach (ICD-10-PCS; 2017-11-29)
PROC: 30233K1 Transfusion of Nonautologous Frozen Plasma into Peripheral Vein, Percutaneous Approach (ICD-10-PCS; 2017-11-29)
PROC: 02HV33Z Insertion of Infusion Device into Superior Vena Cava, Percutaneous Approach (ICD-10-PCS; 2017-11-29)
PROC: B548ZZA Ultrasonography of Superior Vena Cava, Guidance (ICD-10-PCS; 2017-11-29)
PROC: 0DJD8ZZ Inspection of Lower Intestinal Tract, Via Natural or Artificial Opening Endoscopic (ICD-10-PCS; principal; 2017-12-01 12:00)
DX: A41.59 Other Gram-negative sepsis (principal); N17.0 Acute kidney failure with tubular necrosis; E11.00 Type 2 diabetes mellitus with hyperosmolarity without nonketotic hyperglycemic-hyperosmolar coma (NKHHC); G93.40 Encephalopathy, unspecified; E43 Unspecified severe protein-calorie malnutrition; J96.10 Chronic respiratory failure, unspecified whether with hypoxia or hypercapnia; J15.3 Pneumonia due to streptococcus, group B; R40.3 Persistent vegetative state; L89.514 Pressure ulcer of right ankle, stage 4; K29.61 Other gastritis with bleeding; K55.21 Angiodysplasia of colon with hemorrhage; Z99.11 Dependence on respirator [ventilator] status; D68.9 Coagulation defect, unspecified; R47.01 Aphasia; E87.0 Hyperosmolality and hypernatremia; J44.0 Chronic obstructive pulmonary disease with (acute) lower respiratory infection; R65.20 Severe sepsis without septic shock; K21.9 Gastro-esophageal reflux disease without esophagitis; D72.1 Eosinophilia; E78.5 Hyperlipidemia, unspecified; E86.0 Dehydration; G40.909 Epilepsy, unspecified, not intractable, without status epilepticus; D50.0 Iron deficiency anemia secondary to blood loss (chronic); I10 Essential (primary) hypertension; K64.8 Other hemorrhoids; I48.91 Unspecified atrial fibrillation; Z93.0 Tracheostomy status; Z74.01 Bed confinement status; Z98.2 Presence of cerebrospinal fluid drainage device; Z93.1 Gastrostomy status; Z87.820 Personal history of traumatic brain injury; Z79.899 Other long term (current) drug therapy; Z68.24 Body mass index [BMI] 24.0-24.9, adult; K21.0 Gastro-esophageal reflux disease with esophagitis; N20.0 Calculus of kidney
CPT/HCPCS: 36415; 36569; 36600; 71045; 74176; 74177; 76770; 76937; 78278; 80048; 80053; 80061; 80076; 80202; 80305; 81003; 82248; 82375; 82570; 82805; 82962; 83605; 83690; 83735; 83935; 84100; 84300; 85014; 85018; 85025; 85049; 85384; 85610; 85730; 86850; 86900; 86920; 86927; 87040; 87070; 87077; 87086; 87186; 87493; 93005; 94002; 94003; 94640; 96365; 96367; 99291; A6261; A9560; C1725; C1893; C9113; J1815; J2250; J2543; J3010; J3370; J3430; J3490; J7030; J7050; J7060; J7070; J7620; P9016; P9017; Q9967; A4315